=== PATIENT | male | born 1980 | race African-American/Black ===

== ENCOUNTER 2017-08-02 12:49 | Emergency (ER) | payer MEDICAID, OTHER ==
[~2017-08-02] VITALS: Ht 180.3 cm; Wt 65.8 kg
[2017-08-02 13:57] VITALS: BP 126/70
[2017-08-02] MEDS ORDERED: IBUPROFEN 800 MG TAB PO ONE (14:15)
== END 2017-08-02 15:03 | disposition home or self-care (01) ==
LOC: ER 13:16
DX: S39.012A Strain of muscle, fascia and tendon of lower back, initial encounter (principal); V43.62XA Car passenger injured in collision with other type car in traffic accident, initial encounter; Y93.89 Activity, other specified; Y92.488 Other paved roadways as the place of occurrence of the external cause; Y99.8 Other external cause status
CPT/HCPCS: 72100

== ENCOUNTER 2017-12-23 11:42 | Emergency (ER) | payer MEDICAID ==
[~2017-12-23] VITALS: Ht 175.3 cm; Wt 65.8 kg
[2017-12-23 12:06] VITALS: BP 144/83
[2017-12-23] MEDS ORDERED: BACITRACIN TOP OINT 1 UD PKG TOP ONE ×2 (12:36→12:45)
[2017-12-23] MEDS: ACETAMINOPHEN 500 MG TAB PO ONE ×2 (12:45→13:08)
== END 2017-12-23 13:08 | disposition home or self-care (01) ==
LOC: ER 11:42
DX: S00.91XA Abrasion of unspecified part of head, initial encounter (principal); W23.0XXA Caught, crushed, jammed, or pinched between moving objects, initial encounter; Y93.89 Activity, other specified; Y99.8 Other external cause status; Y92.89 Other specified places as the place of occurrence of the external cause

== ENCOUNTER 2017-12-27 13:56 | Emergency (ER) | payer MEDICAID ==
[~2017-12-27] VITALS: Ht 175.3 cm; Wt 65.8 kg
[2017-12-27 14:19] VITALS: BP 136/49
== END 2017-12-27 15:01 | disposition home or self-care (01) ==
LOC: ER 13:56
DX: S00.81XD Abrasion of other part of head, subsequent encounter (principal); X58.XXXD Exposure to other specified factors, subsequent encounter